=== PATIENT | male | born 1960 ===

== ENCOUNTER 2022-10-16 18:03 | Emergency (ER) | payer MEDICAID ==
[~2022-10-16] VITALS: Ht 177.8 cm; Wt 83.9 kg
[2022-10-16 18:12] VITALS: O2SAT 98
--- NOTE | 2022-10-16 18:12 | NUR ---
Pt. placed in bed awaiting to be seen by . Addendum: 10/16/22 at 1845 by [place] Pt. restless agitated and upon admission refusing to given away his [employer], become combative and threatening to leave AMA. getting out of bed.
--- NOTE | 2022-10-16 19:23 | NUR ---
at bedside to examine pt.
--- NOTE | 2022-10-16 19:27 | NUR ---
After being assessed by Dr. Coffey patient want to leave AMA.
--- NOTE | 2022-10-16 19:31 | NUR ---
Pt. refusing to sign AMA form witness pt's behavior Orders to call security and escort pt. out of the building.
--- NOTE | 2022-10-16 19:32 | NUR ---
Security at bedside pt. refusing to leave now, becoming aggressive and denying that earlier He stated "I want to leave AMA to MD. and refuse treatment. pt. crying.
--- NOTE | 2022-10-16 19:37 | NUR ---
Patient restless agitated, Dr. Coffey spoke with pt. and contract with him to stay and allow procedures to be done.
[2022-10-16] MEDS ORDERED: ASPIRIN 81 MG TAB.CHEW ONE (19:43)
[2022-10-16] MEDS ORDERED: ASPIRIN 81 MG TAB.CHEW PO ONE (19:45)
[2022-10-16 19:52] LABS: HEMATOCRIT 49.5 % (36.7-47.1); MEAN CORPUSCULAR HEMOGLOBIN 31.2 uug (23.8-33.4); MEAN CORPUSCULAR VOLUME 92.3 fL (73.0-96.2); PLATELET COUNT (AUTO) 230 K/uL (152-348)
[2022-10-16 20:05] LABS: CARBON DIOXIDE 23 mmol/L (21-32); CHLORIDE 97 mmol/L (98-107); CREATININE 1.3 mg/dL (0.6-1.3); POTASSIUM 3.8 mmol/L (3.5-5.1); UREA NITROGEN, BLOOD 34 mg/dL (7-18)
[2022-10-16] MEDS ORDERED: IV NS 1000 ML 1,000 ML IV ONE (20:15)
[2022-10-16 20:16] LABS: ALANINE AMINOTRANSFERASE 28 U/L (16-63); ALKALINE PHOSPHATASE 115 U/L (50-136); ASPARTATE AMINOTRANSFERASE 26 U/L (15-37); BILIRUBIN,DIRECT 0.2 mg/dL (0.0-0.2); BILIRUBIN,TOTAL 0.8 mg/dL (0.2-1.0); TOTAL PROTEIN, SERUM 8.9 g/dL (6.4-8.2)
[2022-10-16 20:37] LABS: MAGNESIUM 2.5 mg/dL (1.8-2.4)
--- NOTE | 2022-10-16 23:05 | NUR ---
Urine collected and sent to Lab.
[2022-10-16 23:27] LABS: *BILIRUBIN,URIN NEGATIVE (NEGATIVE); *BLOOD, URINE 2+ (NEGATIVE); *CLARITY,URINE HAZY (CLEAR); *COLOR,URINE YELLOW (YELLOW); *KETONES,URINE 1+ (NEGATIVE); *UROBILINOGEN,URINE 0.2 E.U./dl (NORMAL); LEUKOCYTE ESTERASE ,URINE NEGATIVE (NEGATIVE); NITRITE, URINE NEGATIVE (NEGATIVE); PH,URINE 5.5 (5.0-8.0); UGLUCOSE 2+ (NEGATIVE)
[2022-10-16 23:28] LABS: BACTERIA,URINE FEW /HPF (NONE SEEN); SQUAMOUS EPITHELIAL CELL,UR NONE SEEN /HPF (NONE SEEN); WBC,URINE 0-3 /HPF (0-3)
[2022-10-16] MEDS ORDERED: PROCHLORPERAZINE EDISYLATE 10 MG/2 ML VIAL ONE (23:58)
[2022-10-17] MEDS ORDERED: PROCHLORPERAZINE EDISYLATE 10 MG/2 ML VIAL IV ONE
--- NOTE | 2022-10-17 | NUR ---
Patient taken down to CT.
--- NOTE | 2022-10-17 00:18 | NUR ---
Patient back from CT
--- NOTE | 2022-10-17 00:40 | NUR ---
Patient resting, awaiting ER provider re-eval, no s/s of any distress noted at this time.
--- NOTE | 2022-10-17 02:30 | NUR ---
With Md at bedside pt. forcefully removed IV line inserted on 10/16/22 upon arrival blood was spill all over the floor, bed, and pt's clothings.
[2022-10-17] MEDS ORDERED: SULFAMETH/TRIMETH 800/160 MG TABLET PO ONE (02:45)
[2022-10-17] MEDS ORDERED: SULFAMETH/TRIMETH 800/160 MG TABLET ONE (02:47)
[2022-10-17] MEDS ORDERED: PROC10TA29 PO (02:47)
[2022-10-17] MEDS ORDERED: ALBU6.7H9 INH (02:47)
[2022-10-17] MEDS ORDERED: SULF1TAB48 PO (02:47)
--- NOTE | 2022-10-17 02:52 | NUR ---
Ordered another IV inserted for antibiotic administration pt. refusing, notified.
[2022-10-17] MEDS ORDERED: PIPERACILLIN SODIUM/TAZOBACTAM 3.375 G in IV DEXTROSE 5% 50 ML IV ONE (03:00)
--- NOTE | 2022-10-17 03:08 | NUR ---
Pt. become agitated and combative refusing IV line to be restarted notified.
--- NOTE | 2022-10-17 03:09 | NUR ---
Patient with complaning about the food he was served.
--- NOTE | 2022-10-17 04:02 | NUR ---
Patient was provided with his prescription, and signed AMA form Dr. Granger.
--- NOTE | 2022-10-17 04:07 | NUR ---
Pt. left room via own wheelchair.
== END 2022-10-17 04:09 | disposition left against medical advice (07) ==
LOC: ER 18:04
DX: K37 Unspecified appendicitis (principal); R11.0 Nausea; R00.2 Palpitations; D72.0 Genetic anomalies of leukocytes; E11.9 Type 2 diabetes mellitus without complications; F17.210 Nicotine dependence, cigarettes, uncomplicated; Z71.6 Tobacco abuse counseling; Z79.899 Other long term (current) drug therapy
CPT/HCPCS: 99285; 74176; 71045; 96361; 99406; 80076; 80048; 81001; 82607; 83880; 83735; 85025; 85379; 85651; 85730; 87040; 84484; 36415; 93005; 96374; J0780; J7040; A4663